=== PATIENT | male | born 1975 | race Caucasian/White ===

== ENCOUNTER 2016-03-05 12:55 | Emergency (ER) | payer SELFPAY ==
[~2016-03-05] VITALS: Ht 172.7 cm; Wt 75.0 kg
[2016-03-05 13:50] VITALS: BP 138/82
== END 2016-03-05 14:37 | disposition home or self-care (01) ==
LOC: ER 13:05
DX: R03.0 Elevated blood-pressure reading, without diagnosis of hypertension (principal); T50.905A Adverse effect of unspecified drugs, medicaments and biological substances, initial encounter; Y93.89 Activity, other specified; Y99.8 Other external cause status; Y92.89 Other specified places as the place of occurrence of the external cause
CPT/HCPCS: 99281; 99283